=== PATIENT | male | born 1950 | race Caucasian/White ===

== ENCOUNTER 2017-06-30 09:47 | Outpatient (CLI) | payer MEDICARE | END 2017-06-30 09:48 | disposition home or self-care (01) | LOC: LAB.F 09:47 | PROVIDERS: ATTEND Physician Assistant Medical | DX: R97.20 Elevated prostate specific antigen [PSA] (principal) | CPT/HCPCS: 36415; 84153 ==

== ENCOUNTER 2017-07-02 07:20 | Outpatient (CLI) | payer MEDICARE ==
[2017-07-02 11:10] LABS: BASOPHILS # (AUTO) 0.1 10^3/uL (0.0-0.1); EOSINOPHILS # (AUTO) 0.3 10^3/uL (0.0-0.7); EOSINOPHILS % (AUTO) 3.7 %; HCT - HEMATOCRIT 41.5 % (42.0-52.0); HGB - HEMOGLOBIN 13.8 g/dL (14.0-18.0); LYMPHOCYTES # (AUTO) 1.6 10^3/uL (1.5-3.5); MEAN CORPUSCULAR HEMOGLOBIN 29.3 pg (27.0-31.0); MEAN CORPUSCULAR HGB CONC 33.3 g/dL (32.0-36.0); MEAN CORPUSCULAR VOLUME 87.9 fL (80.0-94.0); MEAN PLATELET VOLUME 8.5 fL (7.4-11.4); MONOCYTES # (AUTO) 0.8 10^3/uL (0.0-1.0); MONOCYTES % (AUTO) 11.6 %; NEUTROPHILS # (AUTO) 4.5 10^3/uL (1.5-6.6); NEUTROPHILS % (AUTO) 61.7 %; RED BLOOD COUNT 4.72 10^6/uL (4.70-6.10); RED CELL DISTRIBUTION WIDTH 13.4 % (12.0-15.0); UNCORRECTED WHITE BLOOD COUNT 7.3 x10^3/uL; WHITE BLOOD COUNT 7.3 x10^3/uL (4.8-10.8)
[2017-07-02 11:28] LABS: PSA FREE 0.58 ng/mL (0.16-2.81)
[2017-07-02 11:29] LABS: PSA TOTAL 2.83 ng/mL (0.000-2.000)
== END 2017-07-02 07:21 | disposition home or self-care (01) ==
LOC: LAB.F 07:20
PROVIDERS: ATTEND Physician Assistant Medical
DX: R97.20 Elevated prostate specific antigen [PSA] (principal)
CPT/HCPCS: 36415; 84154; 85025

== ENCOUNTER 2017-12-04 09:47 | Outpatient (CLI) | payer MEDICARE ==
--- NOTE | 2017-12-05 10:06 | XRAY Report ---
DATE OF SERVICE: 12/04/2017 LEFT KNEE: 12/04/2017 COMPARISON: None. INDICATION: Sprain/strain of the knee. TECHNIQUE: Three views of the knee. FINDINGS: There is a minimal superior patellar osteophyte. No other degenerative changes are seen. There is, however, a 7 mm bone density about the anterior knee joint concerning for a possible loose body. Normal alignment. No evidence of acute fracture. IMPRESSION: MINIMAL PATELLOFEMORAL OSTEOARTHRITIS. POSSIBLE LOOSE BODY, 7 MM. TD: 12/05/2017 10:45 [facility]
== END 2017-12-04 09:48 | disposition home or self-care (01) ==
LOC: DI 09:47
PROVIDERS: ATTEND Family Medicine
DX: M17.12 Unilateral primary osteoarthritis, left knee (principal)

== ENCOUNTER 2019-11-09 07:02 | Outpatient (CLI) | payer MEDICARE ==
[2019-11-09 11:17] LABS: CHOL/HDL RATIO 3.3 (<5.0); CHOLESTEROL 187 mg/dL; GLUCOSE,FASTING 96 mg/dL (70-100); HDL CHOLESTEROL 56 mg/dL; LDL CHOLESTEROL,CALCULATED 120 mg/dL; LDL/HDL RATIO 2.1 (<3.6); VLDL CHOLESTEROL 11 mg/dL
== END 2019-11-09 07:03 | disposition home or self-care (01) ==
LOC: LAB.S 07:02
PROVIDERS: ATTEND Internal Medicine
DX: Z13.220 Encounter for screening for lipoid disorders (principal); Z13.1 Encounter for screening for diabetes mellitus; Z12.5 Encounter for screening for malignant neoplasm of prostate
CPT/HCPCS: 36415; 80061; 82947; G0103; 83721; 84153

== ENCOUNTER 2020-11-01 07:08 | Outpatient (CLI) | payer MEDICARE ==
[2020-11-01 16:27] LABS: BASOPHILS # (AUTO) 0.1 10^3/uL (0.0-0.1); BASOPHILS % (AUTO) 1.1 %; EOSINOPHILS # (AUTO) 0.3 10^3/uL (0.0-0.7); EOSINOPHILS % (AUTO) 4.4 %; HGB - HEMOGLOBIN 14.8 g/dL (14.0-18.0); LYMPHOCYTES # (AUTO) 2.2 10^3/uL (1.5-3.5); LYMPHOCYTES % (AUTO) 29.5 %; MEAN CORPUSCULAR HEMOGLOBIN 28.2 pg (27.0-31.0); MEAN CORPUSCULAR HGB CONC 30.8 g/dL (32.0-36.0); MEAN CORPUSCULAR VOLUME 91.4 fL (80.0-94.0); MEAN PLATELET VOLUME 10.2 fL (7.4-11.4); MONOCYTES # (AUTO) 0.9 10^3/uL (0.0-1.0); MONOCYTES % (AUTO) 11.7 %; PLT - PLATELET COUNT 280 10^3/uL (130-450); RED BLOOD COUNT 5.25 10^6/uL (4.70-6.10); RED CELL DISTRIBUTION WIDTH 13.3 % (12.0-15.0); WHITE BLOOD COUNT 7.5 x10^3/uL (4.8-10.8)
[2020-11-01 16:44] LABS: ALBUMIN/GLOBULIN RATIO 1.3 (1.0-2.2); ALKALINE PHOSPHATASE 54 IU/L (42-121); ALT ALANINE AMINOTRANSFERASE 16 IU/L (10-60); AST ASPARTATE AMINOTRANSFERASE 23 IU/L (10-42); BILIRUBIN,TOTAL 0.6 mg/dL (0.2-1.0); BUN - BLOOD UREA NITROGEN 21 mg/dL (6-20); CALCIUM 9.2 mg/dL (8.5-10.3); CARBON DIOXIDE - CO2 27 mmol/L (21-32); CHLORIDE 100 mmol/L (101-111); CHOLESTEROL 204 mg/dL; CREATININE 0.8 mg/dL (0.6-1.2); GLUCOSE 102 mg/dL (70-100); HDL CHOLESTEROL 51 mg/dL; LDL CHOLESTEROL,CALCULATED 135 mg/dL; LDL/HDL RATIO 2.6 (<3.6); SODIUM 137 mmol/L (135-145); VLDL CHOLESTEROL 18 mg/dL
== END 2020-11-01 07:09 | disposition home or self-care (01) ==
LOC: LAB.S 07:08
PROVIDERS: ATTEND Internal Medicine
DX: Z00.00 Encounter for general adult medical examination without abnormal findings (principal); Z12.5 Encounter for screening for malignant neoplasm of prostate
CPT/HCPCS: 36415; 80053; 80061; 85025; G0103; 83721; 84153

== ENCOUNTER 2020-11-02 10:08 | Outpatient (CLI) | payer MEDICARE ==
--- NOTE | 2020-11-02 14:50 | XRAY Report ---
PROCEDURE: Foot 3 View LT INDICATIONS: FOOT JOINT PAIN, LEFT TECHNIQUE: 3 views of the foot were acquired. COMPARISON: Not available. FINDINGS: Bones: No fractures or dislocations. No suspicious bony lesions. Mild osteoarthritic changes in mu ltiple interphalangeal joints. Mild calcaneal spurring. Soft tissues: No tibiotalar joint effusion. Achilles tendon appears normal. IMPRESSION: 1. Mild osteoarthritis. 2. Mild calcaneal spurring. Reviewed by: Mauricio Daniel MD on 11/02/2020 2:48 PM PST Approved by: Mauricio Daniel MD on 11/02/2020 2:48 PM PST Station ID: [id number]
== END 2020-11-02 10:09 | disposition home or self-care (01) ==
LOC: DI.S 10:08
PROVIDERS: ATTEND Internal Medicine
DX: M19.072 Primary osteoarthritis, left ankle and foot (principal); M77.32 Calcaneal spur, left foot

== ENCOUNTER 2022-11-27 06:41 | Outpatient (CLI) | payer MEDICARE ==
--- NOTE | 2022-11-27 10:04 | Ultrasound Report ---
PROCEDURE: Aorta Screening INDICATIONS: EX SMOKER TECHNIQUE: Real time scanning was performed of the aorta and iliac arteries, with image documentatio n. COMPARISON: None FINDINGS: Aorta: Proximal aortic diameter measures 2.4 x 2.5 cm. Mid-aorta measures 2.1 x 2.5 cm. Distal aor tic diameter is 2.2 x 2.1 cm. Iliac arteries: Right common iliac artery measures 1.6 x 1.5 cm. Left common iliac artery measures 1.5 x 1.5 cm. IMPRESSION: Negative screening abdominal aortic ultrasound for abdominal aortic aneurysm. Reviewed by: Ken Stevens MD on 11/27/2022 10:03 AM PST Approved by: Ken Stevens MD on 11/27/2022 10:03 AM PST Station ID: [id number]
== END 2022-11-27 06:42 | disposition home or self-care (01) ==
LOC: DI 06:41
PROVIDERS: ATTEND Nurse Practitioner Family
DX: Z13.6 Encounter for screening for cardiovascular disorders (principal); Z87.891 Personal history of nicotine dependence

== ENCOUNTER 2023-03-12 08:27 | Day surgery (SDC) | payer MEDICARE ==
[2023-03-12] MEDS ORDERED: LACTATED RINGERS 1,000 ML IV ONE (08:29)
--- NOTE | 2023-03-12 09:09 | ANESTHESIA ---
Pre-Anesthesia VS, & Labs - Diagnosis positive cologuard, screening - Procedure colonoscopy Vital Signs: Temp Pulse Resp BP Pulse Ox O2 Flow Rate 36 C L 58 L 16 143/82 H 95 03/12/23 08:35 03/12/23 08:35 03/12/23 08:35 03/12/23 08:35 03/12/23 08:35 Height: 5 ft 11 in Weight (kg): 83 kg Body Mass Index: 25.4 BMI Classification: Overweight - NPO Other (prep as directed) Home Medications and Allergies Allergies/Adverse Reactions: Allergies Allergy/AdvReac Type Severity Reaction Status Date / Time Latex, Natural Rubber Allergy Hives Verified 02/19/16 11:34 venom-honey bee AdvReac Hives Verified 02/19/16 11:32 [bee venom (honey bee)] Anes History & Medical History - Anesthetic History Anesthesia Complications: reports: No previous complications - Medical History Cardiovascular: reports: None Pulmonary: reports: None Gastrointestinal: reports: None Urinary: reports: None Musculoskeletal: reports: Osteoarthritis Endocrine/Autoimmune: reports: None Skin: reports: None History of Cancer?: No - Surgical History Orthopedic: reports: Other Exam General: Alert, Oriented x3 Dental: WNL Mouth Opening: Greater than 4 Fingerbreadths Neck Mobility: Normal Mallampati classification: I Respiratory: Lungs clear Cardiovascular: Regular rate Plan Anesthesia Type: Total IV Consent for Procedure(s) Verified and Reviewed: Yes Code Status: Attempt Resuscitation ASA classification: 2-Mild systemic disease Is this case an emergency?: No
[2023-03-12] MEDS ORDERED: PROPOFOL 500 MG/50 ML 500 MG/50 ML VIAL ONE (09:31)
[2023-03-12] MEDS ORDERED: LACTATED RINGERS 450 ML IV ONE (10:39)
[2023-03-12 11:01] VITALS: BP 120/71
--- NOTE | 2023-03-12 11:07 | ANESTHESIA POST OP EVALUATION ---
Anesthesia Post Eval - Post Anesthesia Eval Vitals: Last Vital Signs Temp 36.1 C L 03/12/23 11:00 Pulse 52 L 03/12/23 11:00 Resp 16 03/12/23 11:00 BP 120/71 03/12/23 11:00 Pulse Ox 97 03/12/23 11:00 O2 Flow Rate CV Function Including HR & BP: Stable Pain Control: Satisfactory Nausea & Vomiting: Negative Mental Status: Baseline Respiratory Status: Airway Patent Hydration Status: Satisfactory Anesthesia Complications: None
== END 2023-03-12 08:28 | disposition home or self-care (01) ==
LOC: SDS 08:27
PROVIDERS: ATTEND Surgery
DX: Z12.11 Encounter for screening for malignant neoplasm of colon (principal); R19.5 Other fecal abnormalities; K57.30 Diverticulosis of large intestine without perforation or abscess without bleeding; K64.1 Second degree hemorrhoids; K64.2 Third degree hemorrhoids
CPT/HCPCS: G0121; J7120